=== PATIENT | female | born 1975 | race Caucasian/White ===

== ENCOUNTER → 2017-05-12 | Outpatient (CLI) | payer BC ==
[~2017-05-12] MED LIST: ACYC-223 PO; ALBUAER INH; CETI10TA84 PO; CITA20TA4 PO; FLUT0.0529 NAE; LEVO112T2 PO; LIOT5TAB9 PO; NORE-24 PO; OXYC-57 PO
--- NOTE | 2017-05-12 17:51 | DIAGNOSTIC IMAGING REPORT ---
FUSION CT SINUSES W/O HISTORY: CHRONIC SINUSITIS TECHNIQUE: Multiaxial CT images of the sinuses were performed reformatted in the coronal plane. Fusion CT sinus protocol was also obtained. COMPARISON STUDY: None. FINDINGS: The frontal sinuses, sphenoid sinuses, left ethmoid air cells, and left maxillary sinus are clear. Small fluid level with bubbly secretions and mild mucosal thickening within the right maxillary sinus. The mastoid air cells are clear. The bilateral anterior clinoids are partially pneumatized. Small focus of mucosal thickening seen within the right posterior ethmoid air cells. The orbital floors and lamina papyracea are intact. Partial opacification of the right ethmoid infundibulum. There is S-shaped deviation of the nasal septum with a small left-sided nasal spur. The left ostiomeatal unit is patent. The visualized brain parenchyma and orbits are unremarkable. IMPRESSION: 1. Small fluid level with bubbly secretions and mild mucosal thickening within the right maxillary sinus. This is consistent with acute on chronic sinusitis. 2. S-shaped deviation of the nasal septum. 3. Partial opacification of the right ethmoid infundibulum. The left ostiomeatal unit is patent. Electronically signed by: Erick Cuba M.D. 05/12/2017 5:50 PM Dictated Date/Time: 05/12/2017 5:45 PM
== END | disposition home or self-care (01) ==
LOC: C.CTS 16:11
DX: J32.9 Chronic sinusitis, unspecified (principal); J34.2 Deviated nasal septum

== ENCOUNTER → 2017-06-21 | Outpatient (CLI) | payer BC ==
[~2017-06-21] MED LIST changes: -ALBUAER INH; -CITA20TA4 PO; +CITA40TA4 PO; -FLUT0.0529 NAE; -LEVO112T2 PO; -LIOT5TAB9 PO; +MOME100A INH; +MONT1TAB5 PO; -NORE-24 PO; -OXYC-57 PO; +PRLSR20 PO; +THYR90TA PO; +VNTHFA/IN INH
[2017-06-21 17:46] LABS: BASO % 0.3 %; BASO ABS # 0.03 K/uL (0-0.2); EOS % 2.6 %; EOS ABS # 0.26 K/uL (0-0.5); HEMATOCRIT 38.3 % (37-47); HEMOGLOBIN 13.2 g/dL (12.0-16.0); IG# 0.02 K/uL (0.00-0.02); LYMPH % 31.6 %; LYMPH ABS # 3.13 K/uL (1.2-3.4); MEAN CELL VOLUME 93.6 fL (80-100); MEAN CORPUSCULAR HEMOGLOBIN 32.3 pg (25-34); MEAN CORPUSCULAR HGB CONC 34.5 g/dl (32-36); MEAN PLATELET VOLUME 9.7 fL (7.4-10.4); MONO % 7.4 %; MONO ABS # 0.73 K/uL (0.11-0.59); NEUT % 57.9 %; NEUT ABS # 5.75 K/uL (1.4-6.5); PLATELET COUNT 264 K/uL (130-400); RED CELL DISTRIBUTION WIDTH CV 13.4 % (11.5-14.5); WHITE BLOOD COUNT 9.92 K/uL (4.8-10.8)
[2017-06-21 17:49] LABS: POTASSIUM 3.9 mmol/L (3.5-5.1)
[2017-06-21 18:01] LABS: PTT PATIENT 27.9 SECONDS (21.0-31.0)
== END | disposition home or self-care (01) ==
LOC: C.LABMFLN 15:55
DX: Z01.818 Encounter for other preprocedural examination (principal)

== ENCOUNTER → 2017-06-23 | Day surgery (SDC) | payer BC ==
[2017-06-08 11:20] VITALS: Ht 165.1 cm; Wt 81.8 kg
[~2017-06-23] VITALS: Ht 165.1 cm; Wt 81.8 kg
[~2017-06-23] MED LIST changes: +ATROPINE SULFATE 0.1 MG/ML 5ML SYR IV PRN; +CEFAZOLIN 2000MG IV PUSH 10 ML IV SCH; +DEXAMETHASONE SOD INJ 4 MG/ML VIAL ONE; +EpINEphrine INJ 1MG/ML AMP 1 MG/ML AMP ONE; +FENTANYL CITRATE INJ 50 MCG/1 ML 2 ML VIAL ONE; +GLYCOPYRROLATE INJ 0.2 MG/ML VIAL ONE; +HYDROCODONE/ACETAMIN 5/325MG TAB PO PRN; +LABETALOL HCL IV 5 MG/ML 20ML IV PRN; +LACTATED RINGER'S 1000ML 1,000 ML IV SCH; +LIDOCAINE 4% MPF SOAK 5 ML = 1 DOSE TOP ONE; +LIDOCAINE HCL 2% 2 ML VIAL (20MG/ML) ONE; +LIDOCAINE/EPINEPHRINE 1% INJ 50 ML VIAL ONE; +MIDAZOLAM HCL 1 MG/ML 2ML VIAL ONE; +NEOSTIGMINE METHYLSULFATE 5 MG/5 ML SYR ONE; +ONDANSETRON INJ 2 MG/ML 2 ML VIAL IV PRN; +ONDANSETRON INJ 2 MG/ML 2 ML VIAL ONE; +OXYMETAZOLINE HCL 0.05% NA SPR 15 ML BTL PRN; +OXYMETAZOLINE HCL 0.05% NA SPR 15 ML BTL SCH; +PROPOFOL IV EMULSION 10 MG/ML 20 ML VIAL IV ONE
--- NOTE | 2017-06-23 10:04 | History and Physical: Surg Cnt ---
History & Physical Date Jun 23, 2017. Chief Complaint RIGHT CHRONIC SINUSITIS, LEFT>RIGHT SEPTAL DEVIATION, BILATERAL INFERIOR TURBINATE HYPERTROPHY History of Present Illness The patient is a 42 year old female with complaints of RIGHT CHRONIC SINUSITIS, LEFT>RIGHT SEPTAL DEVIATION, BILATERAL INFERIOR TURBINATE HYPERTROPHY WITH SYMPTOMS DESPITE MAXIMAL MEDICAL THERAPY. Past Medical/Surgical History PMH: ABOVE, ALLERGIC RHINITIS, ANXIETY, COPD, DEPRESSION, GERD, HYPOTHYROIDISM PSH: S/P HAND SURGERY, HYSTERECTOMY, CERVIX LASER ABLATION, PILONIDAL CYST EXCISION, WEDGE RESECTION OF LUNG THORASCOPICALLY Additional History Hepatic Disease: No Endocrine Disorder: No Kidney Disease: No Hypertension: No Heart Disease: No Bleeding Tendencies: No Infectious Diseases: No Allergies Coded Allergies: Pseudoephedrine (Verified Allergy, Unknown, HEART RACES, 06/23/17) Home Medications Scheduled Acyclovir (Zovirax), 2 TABS PO QAM Citalopram Hydrobromide (Citalopram Hydrobromide), 1 TAB PO QAM Mometasone Furoate-Formoterol (Dulera 100/5 Mcg), 2 PUFFS INH BID Montelukast Sodium (Montelukast Sodium), 1 TAB PO QAM Omeprazole (Prilosec), 20 MG PO QAM Thyroid ([place] Thyroid), 1 TAB PO QAM Scheduled PRN Albuterol Hfa (Ventolin Hfa), 2-4 PUFFS INH Q6H PRN for SOB/Wheezing Cetirizine (Zyrtec), 10 MG PO DAILY PRN for Seasonal Allergies Physical Examination Eyes: normal inspection, EOMI, sclerae normal ENT: + pertinent finding (L>R DNS, R>L ITH) Head: normocephalic, atraumatic Neck: supple, no adenopathy, trachea midline Respiratory/Chest: lungs clear, normal breath sounds, no respiratory distress Cardiovascular: regular rate, rhythm, no edema, no murmur Neurologic/Psych: no motor/sensory deficits, alert, normal reflexes, oriented x 3 Diagnosis RIGHT CHRONIC SINUSITIS, LEFT>RIGHT SEPTAL DEVIATION, BILATERAL INFERIOR TURBINATE HYPERTROPHY Plan of Treatment IMAGE-GUIDED RIGHT FESS, SEPTOPLASTY, AND BILATERAL INFERIOR TURBINATE REDUCTION
--- NOTE | 2017-06-23 10:58 | [facility] Operative Report ---
Operative Report Operative Date Jun 23, 2017. Pre-Operative Diagnosis Right Chronic Sinusitis, Left > Right Septal Deviation, Bilateral Inferior Turbinate Hypertrophy Post-Operative Diagnosis Same Procedure(s) Performed Image Guided Right Endoscopic Sinus Surgery, Septoplasty, Bilateral Inferior Turbinate Reduction Surgeon Dr. Mistry [employer] Attorney Surgeon(s) None Estimated Blood Loss 10ML Findings THICK MUCUS WITHIN POSTERIOR ASPECT OF RIGHT MAXILLARY SINUS, MILD MUCOSAL THICKENING R MAXILLARY AND ETHMOID SINUSES, L>R SEPTAL DEVIATION, R>L INFERIOR TURBINATE HYPERTROPHY Specimens None I attest to the content of the Intraoperative Record and any orders documented therein. Any exceptions are noted below.
--- NOTE | 2017-06-23 11:01 | Discharge Instructions ---
Discharge Instructions Date of Service Jun 23, 2017. Admission Reason for Admission: Acquired Deviated Nasal Septum, Hypertrophy Of Inf Discharge Discharge Diagnosis / Problem: SAME Discharge Goals Goal(s): Therapeutic intervention Activity Recommendations Activity Limitations: as noted below LIGHT ACTIVITY AND NO NOSE BLOWING FOR 2 WEEKS; NO DRIVING WHILE ON [place] . Current Hospital Diet Patient's current hospital diet: Discharge Diet Recommended Diet: Regular Diet Procedures Procedures Performed: Image Guided Right Endoscopic Sinus Surgery, Septoplasty, Bilateral Inferior Turbinate Reduction Pending Studies Studies pending at discharge: no Medical Emergencies . Who to Call and When: Medical Emergencies: If at any time you feel your situation is an emergency, please call 911 immediately. . Non-Emergent Contact Non-Emergency issues call your: Surgeon . . "Provider Documentation" section prepared by Magdaleno Mistry. . VTE Core Measure Inpt VTE Proph given/why not?: SCD's
[2017-06-23] MEDS: FENTANYL CITRATE INJ 50 MCG/1 ML 2 ML VIAL IV PRN ×4 (11:16→11:44)
[2017-06-23 12:00] VITALS: BP 116/76; PULSE 83; TEMP 36.8; O2SAT 97
--- NOTE | 2017-06-23 12:21 | OPERATIVE REPORT ---
DATE OF OPERATION: 06/23/2017 PREOPERATIVE DIAGNOSES: 1. Right-sided chronic sinusitis. 2. Left greater than right septal deviation. 3. Right greater than left inferior turbinate hypertrophy. POSTOPERATIVE DIAGNOSES: 1. Right-sided chronic sinusitis. 2. Left greater than right septal deviation. 3. Right greater than left inferior turbinate hypertrophy. PROCEDURES: [employer] fusion image guided right endoscopic sinus surgery consisting of, 1. Right maxillary antrostomy. 2. Right complete ethmoidectomy. 3. Septoplasty. 4. Bilateral inferior turbinate outfracture and turbinoplasties. SURGEON: Dr. Magdaleno Mistry. ANESTHESIA: General endotracheal. ESTIMATED BLOOD LOSS: 10 mL. FINDINGS: 1. Thick inspissated mucus involving the posterior aspect of the right maxillary sinus. 2. Mild mucosal thickening involving the right maxillary and ethmoid sinuses. 3. Severe left greater than right septal deviation with posteroinferior left septal deviation and anterosuperior right septal deviation. 4. Right greater than left inferior turbinate hypertrophy. SPECIMENS: None. COMPLICATIONS: None. INDICATIONS FOR THE PROCEDURE: The patient is a 42-year-old female with the above-mentioned history, which has been refractory to maximal medical therapy including systemic antibiotics and steroids. Posttreatment fusion CT scan of the sinuses revealed right maxillary and ethmoid sinusitis as well as severe left greater than right septal deviation and right greater than left inferior turbinate hypertrophy. She presents for the above-mentioned procedures on an outpatient elective basis. DESCRIPTION OF PROCEDURE: After informed consent had been obtained from the patient, the patient was wheeled to the operating room and placed on the operating table in the supine position. Monitors were placed. After induction of general endotracheal anesthesia, the patient was prepped in the usual fashion for image guided endoscopic sinus surgery. The [employer] fusion headset was placed over the forehead and was registered, verified, and calibrated and used for the sinus portion of the case. Lidocaine and epinephrine pledgets were then placed in the bilateral nasal cavities and pressure applied. The right-sided pledgets were first removed. A freer elevator was used to medialize the middle turbinate. The uncinate process and middle turbinate were injected with 1% lidocaine with 1:100,000 epinephrine. Lidocaine and epinephrine pledget was then placed into the right middle meatus. After allowing adequate time for vasoconstriction and anesthesia, the right-sided pledget was removed and then uncinatectomy was performed using a freer elevator, straight Antonio-Cut forceps, and powered instrumentation. The natural ostium of the right maxillary sinus was then enlarged anteriorly, inferiorly, and posteriorly using backbiting forceps and powered instrumentation. There was a large amount of thick inspissated secretions covering the posterior aspect of the right maxillary sinus. A complete ethmoidectomy was then performed using powered instrumentation. The septoplasty was then performed. 1% lidocaine with 1:100,000 epinephrine used to inject the nasal septum bilaterally, thereby performing hydrodissection of the mucoperichondrial and mucoperiosteal flaps. Lidocaine and epinephrine pledget was then placed in the bilateral nasal cavities and pressure applied. The pledgets were then removed. A #15 scalpel was used to make a left Demario incision through which the left sided mucoperichondrial and mucoperiosteal flap was elevated. A #15 scalpel was then used to incise the quadrangular cartilage with care to preserve a 1.5-cm dorsal and caudal strut and the right-sided mucoperichondrial and mucoperiosteal flap was elevated through this cartilaginous incision. A Rod swivel knife was then was used to remove the deviated portion of the quadrangular cartilage, which was impinging on the airway on the left hand side primarily. A V-shaped osteotome, mallet, and Selene forceps was then used to remove a large bony septal spur, which was impinging on the left nasal airway posteriorly. Anterosuperior septal deviation and posterior superior septal deviation was noted on the right hand side and this was due to septal bone that was removed using Yuan-Miguel forceps. The septal cavity was then suctioned. The septum was found to be midline. The left [place] incision was closed with several simple interrupted 4-0 chromic sutures. A 4-0 plain gut suture on a Julio Cesar needle was then used to perform a quilting stitch of the mucoperichondrial and mucoperiosteal flaps bilaterally to help prevent septal hematoma. A Mike elevator was then used to infracture and subsequently outfracture the inferior turbinates bilaterally. Inferior turbinates were injected with 1% lidocaine with 1:100,000 epinephrine. A 2.0-mm turbinate blade using powered instrumentation was then used to perform bilateral inferior turbinoplasties in a submucosal fashion. The sinonasal cavities were then suctioned. Merogel was placed into the right ethmoid cavity/middle meatus. An orogastric tube was placed and the stomach suctioned free of air and stomach contents. This marked the end of the case. The patient tolerated the procedure well. There were no apparent complications. The patient was extubated and transferred to recovery room in stable condition. I attest to the content of the Intraoperative Record and any orders documented therein. Any exception s are noted below.
--- NOTE | 2017-06-23 12:52 | Anesthesia Progress Nt - [facility] ---
Anesthesia Post Op Note Date & Time Jun 23, 2017 at 12:52 Vital Signs Pain Intensity: 7 Vital Signs Past 12 Hours Date Time Temp Pulse Resp B/P (MAP) Pulse Ox O2 Delivery O2 Flow Rate FiO2 06/23/17 12:00 36.8 83 16 116/76 (89) 97 Room Air 06/23/17 11:50 123/75 06/23/17 11:48 36.9 96 16 123/74 96 Room Air 06/23/17 11:46 80 16 06/23/17 11:46 78 16 97 06/23/17 11:45 123/74 06/23/17 11:41 73 15 98 06/23/17 11:41 72 15 06/23/17 11:40 126/76 06/23/17 11:36 75 3 06/23/17 11:36 74 3 100 06/23/17 11:35 83 10 06/23/17 11:35 81 10 119/77 99 06/23/17 11:30 77 17 06/23/17 11:30 78 17 123/69 100 06/23/17 11:26 125/66 06/23/17 11:25 88 14 100 06/23/17 11:25 87 14 06/23/17 11:20 93 16 125/74 100 06/23/17 11:20 93 16 06/23/17 11:16 115/64 06/23/17 11:15 105 21 99 06/23/17 11:15 104 21 06/23/17 11:12 128/83 06/23/17 11:06 138/86 06/23/17 11:05 36.3 125 20 138/86 98 Humidified Oxygen 6 Diffusion Mask 06/23/17 11:05 126 99 06/23/17 11:05 126 06/23/17 08:39 36.7 77 16 113/70 (84) 99 Room Air Notes Mental Status: alert / awake / arousable, participated in evaluation Pt Amnestic to Procedure: Yes Nausea / Vomiting: adequately controlled Pain: adequately controlled Airway Patency, RR, SpO2: stable & adequate BP & HR: stable & adequate Hydration State: stable & adequate Anesthetic Complications: no major complications apparent
== END | disposition home or self-care (01) ==
LOC: X.SURG 08:11
DX: J32.9 Chronic sinusitis, unspecified (principal); J34.2 Deviated nasal septum; J34.3 Hypertrophy of nasal turbinates; J44.9 Chronic obstructive pulmonary disease, unspecified; K21.9 Gastro-esophageal reflux disease without esophagitis; E03.9 Hypothyroidism, unspecified; Z90.710 Acquired absence of both cervix and uterus; M19.90 Unspecified osteoarthritis, unspecified site; F32.9 Major depressive disorder, single episode, unspecified; Z87.891 Personal history of nicotine dependence

== ENCOUNTER → 2017-11-10 | Outpatient (CLI) | payer BC ==
[~2017-11-10] MED LIST changes: -ATROPINE SULFATE 0.1 MG/ML 5ML SYR IV PRN; -CEFAZOLIN 2000MG IV PUSH 10 ML IV SCH; -DEXAMETHASONE SOD INJ 4 MG/ML VIAL ONE; -EpINEphrine INJ 1MG/ML AMP 1 MG/ML AMP ONE; -FENTANYL CITRATE INJ 50 MCG/1 ML 2 ML VIAL ONE; -GLYCOPYRROLATE INJ 0.2 MG/ML VIAL ONE; -HYDROCODONE/ACETAMIN 5/325MG TAB PO PRN; -LABETALOL HCL IV 5 MG/ML 20ML IV PRN; -LACTATED RINGER'S 1000ML 1,000 ML IV SCH; -LIDOCAINE 4% MPF SOAK 5 ML = 1 DOSE TOP ONE; -LIDOCAINE HCL 2% 2 ML VIAL (20MG/ML) ONE; -LIDOCAINE/EPINEPHRINE 1% INJ 50 ML VIAL ONE; -MIDAZOLAM HCL 1 MG/ML 2ML VIAL ONE; -NEOSTIGMINE METHYLSULFATE 5 MG/5 ML SYR ONE; -ONDANSETRON INJ 2 MG/ML 2 ML VIAL IV PRN; -ONDANSETRON INJ 2 MG/ML 2 ML VIAL ONE; -OXYMETAZOLINE HCL 0.05% NA SPR 15 ML BTL PRN; -OXYMETAZOLINE HCL 0.05% NA SPR 15 ML BTL SCH; -PROPOFOL IV EMULSION 10 MG/ML 20 ML VIAL IV ONE
--- NOTE | 2017-11-10 14:10 | DIAGNOSTIC IMAGING REPORT ---
CHEST 2 VIEWS ROUTINE HISTORY: Atypical CHEST PAIN COMPARISON: Chest 04/14/2016. FINDINGS: The heart is normal in size. No pleural effusions. No pneumothorax. Stable suture material and linear scarlike densities within the left lung base. The lungs are otherwise clear. IMPRESSION: No significant change compared to the prior study. No acute process. Electronically signed by: Erick Cuba M.D. 11/10/2017 2:09 PM Dictated Date/Time: 11/10/2017 2:07 PM
== END | disposition home or self-care (01) ==
LOC: C.RADBC 13:58
PROVIDERS: ATTEND Family Medicine
DX: R07.9 Chest pain, unspecified (principal)